=== PATIENT | female | born 1965 | race Caucasian/White ===

== ENCOUNTER 2019-08-26 18:45 | Emergency (ER) | payer OTHER ==
[2019-08-26 19:23] VITALS: BP 150/85; PULSE 60; TEMP 97.5; BMI 25.4
--- NOTE | 2019-08-26 19:33 | PDOC ---
Documentation entered by Mary Wilkins SCRIBE, acting as scribe for Oswaldo Burnette MD. Oswaldo Burnette MD: This documentation has been prepared by the Claudette landaverde Sammi, SCRIBE, under my direction and personally reviewed by me in its entirety. I confirm that the documentation accurately reflects all work, treatment, procedures, and medical decision making performed by me. History of Present Illness - General Chief Complaint: Injury Stated Complaint: FELL History Source: Patient Exam Limitations: No Limitations - History of Present Illness Initial Comments: 08/26/19 19:26 The patient is a 54 year old, citizen of [place] speaking female, who presents for evaluation of right wrist and right thumb pain s/p fall around 10am today. The patient states she lost her balance falling on her right side, notes hitting her right head. Friend at bedside notes swelling and redness to the area around the right eye. There is poor history due to language barrier. PAST MEDICAL HISTORY: unknown immunization. PAST SURGICAL HISTORY: no significant history FAMILY HISTORY: no pertinent history SOCIAL HISTORY: [place] resident 17[place] years. MEDICATIONS: reviewed ALLERGIES: As per nursing notes Adult ROS General: No fevers or chills, no weakness, no weight loss HEENT: No change in vision. No sore throat,. No ear pain CardioVascular: No chest pain or shortness of breath Respiratory:No cough, or wheezing. Gastrointestinal: no nausea, vomiting, diarrhea or constipation, No rectal bleeding Genitourinary: No dysuria, hematuria, or frequency Musculoskeletal: +right wrist and thumb pain. Neurologic: No headache, vertigo, dizziness or loss of consciousness Skin:+redness and abrasions to area around right eye. All other systems reviewed and normal Adult Exam: General: Well-nourished well-developed individual, no acute distress HEENT: Throat: Normal, tonsils normal, no erythema or exudate Neck: Supple, no meningeal signs, no lymphadenopathy Eyes::Pupils equal reactive and round, extraocular motion intact Chest: Nontender to palpation Cardiac: S1-S2 normal, regular rate and rhythm, no murmurs rubs or gallops Respiratory: Lungs clear to auscultation bilateral Abdomen: Soft, nondistended, normal bowel sounds, nontender to palpation diffusely Extremities: +ttp right distal radius, there is also tenderness on palpation of the scaphoid/anatomical snuffbox no obvious deformity, neurovacularly distal intact. Skin:+small abrasion to right lateral eyebrow and cheekbone, no bony tenderness. Neuro: Alert and oriented x3, nonfocal exam, grossly intact, normal gait Psych: Normal mood and affect Assessment and plan: This is a 54-year-old female who fell approximately 10:00 this morning. Patient fell on her outstretched right hand also hit her right Lateral face area and has a small abrasion over the eyebrow and zygoma. There is no bony tenderness however. X-rays of patient's wrist were ordered. X-ray read by me no obvious fracture however given the fact that there is some tenderness over the scaphoid patient was put in a thumb spica splint and given orthopedic follow-up. Past History - Past Medical History Allergies/Adverse Reactions: Allergies Allergy/AdvReac Type Severity Reaction Status Date / Time No Known Allergies Allergy Verified 08/26/19 19:02 Home Medications: Ambulatory Orders Ibuprofen 600 mg PO ONCE 08/26/19 NK [No Known Home Medication] 08/26/19 *Physical Exam - Vital Signs Last Vital Signs Temp Pulse Resp BP Pulse Ox 97.5 F L 60 15 150/85 100 08/26/19 18:59 08/26/19 18:59 08/26/19 18:59 08/26/19 18:59 08/26/19 18:59 ED Treatment Course - RADIOLOGY Radiology Studies Ordered: Category Date Time Status WRIST W/HAND-RIGHT* [RAD] Stat Radiology 08/26/19 19:25 Ordered Discharge - Discharge Information Problems reviewed: Yes Clinical Impression/Diagnosis: Right hand pain Condition: Good Disposition: HOME - Admission No - Follow up/Referral Referrals: Wilma Alves MD [Primary Care Provider] - Jamarcus Short MD [Staff Physician] - - Patient Discharge Instructions Additional Instructions: For the pain you can take your extra strength Motrin 1 tablet as often as twice a day with food. Wear the splint to keep it dry until you see the orthopedist On Thursday call the orthopedist Dr. Short and get an appointment to follow-up Thursday if possible. Return to the emergency department immediately with ANY new, persistent or worsening symptoms. Continue any medications as previously prescribed by your physician. You should follow up with your primary doctor as soon as possible regarding today's emergency department visit. . Please make sure your doctor reviews the results of your emergency evaluation. Thank you for coming to the Emergency Department today for your care. It was a pleasure to see you today. Please note that your evaluation is INCOMPLETE until you follow-up with your doctor. - Post Discharge Activity
[2019-08-26] MEDS ORDERED: DIPHTH,PERTUSS(ACELL),TET 0.5 ML DISP.SYRIN IM ONE ×2 (20:01→20:04)
== END 2019-08-26 20:23 | disposition home or self-care (01) ==
LOC: FER 18:45
PROC: 2W3JX1Z Immobilization of Right Finger using Splint (ICD-10-PCS; principal; 2019-08-26)
DX: M79.644 Pain in right finger(s) (principal); W18.39XA Other fall on same level, initial encounter; Y93.89 Activity, other specified; Y92.89 Other specified places as the place of occurrence of the external cause
CPT/HCPCS: 73110-TC-RT-FY; 73130-TC-RT-FY; 90715; 99281-25